=== PATIENT | male | born 1990 | race Caucasian/White ===

== ENCOUNTER 2020-02-01 15:00 | Emergency (ER) | payer BC, SELFPAY ==
[2020-02-01 16:00] LABS: Absolute Lymphocytes (CBC) 1.3 K/uL (0.7-4.9); Basophils % 0.6 % (0-1.3); Hematocrit 46.2 % (39.6-49.0); Lymphocytes % 25.2 % (15.3-44.8); MPV 9.1 fL (7.6-11.3); RBC Red Blood Cell Count 4.86 M/uL (4.33-5.43)
[2020-02-01] MEDS ORDERED: LIDOCAINE VISCOUS 2% SOLN 15 ML UDC ONE (16:02)
[2020-02-01] MEDS ORDERED: MAGNE/ALUM HYDROXD 30 ML UCUP ONE (16:02)
[2020-02-01] MEDS ORDERED: FAMOTIDINE 20 MG/2 ML VIAL IV ONE (16:03)
[2020-02-01 16:21] LABS: Albumin 3.9 g/dL (3.4-5.0); Bilirubin Direct 0.2 mg/dL (0-0.2); Bilirubin Total 0.5 mg/dL (0.2-1.0); Potassium 3.9 mmol/L (3.5-5.1); Protein, Total 7.6 g/dL (6.4-8.2)
--- NOTE | 2020-02-01 16:34 | EDPHYS ---
Physician Documentation [facility] Name: Ramiro Urban Age: 29 yrs Sex: Male : 1990 Arrival Date: 02/01/2020 Time: 15:04 Bed 19 Private MD: ED Physician Carlos Manuel Eid HPI: 01/31 16:30 This 29 yrs old Male presents to ER via Ambulatory with complaints of Upper rn Abd Pain. 16:30 The patient presents with abdominal pain in the epigastric area. Onset: The rn symptoms/episode began/occurred 2 day(s) ago. The symptoms do not radiate. Associated signs and symptoms: Pertinent positives: nausea, Pertinent negatives: blood in stools, fever, vomiting, vomiting blood. Modifying factors: The symptoms are alleviated by nothing, the symptoms are aggravated by food, touching the area. Severity of pain: At its worst the pain was mild in the emergency department the pain is unchanged. The patient has not experienced similar symptoms in the past. Reports upper abd pain, began 2 days ago, worse with food, + hx of acid reflux, today feels different, no bloody or dark stool. Improved with bread. . Historical: - Allergies: 15:24 No Known Allergies; ca1 - Home Meds: 15:24 None [Active]; ca1 - PMHx: 15:24 None; ca1 - PSHx: 15:24 None; ca1 - Immunization history:: Adult Immunizations up to date. - Social history:: Smoking status: Patient reports the use of cigarette tobacco products, denies chronic smoking, but will smoke occasionally, Patient uses alcohol, on a daily basis. admits to "couple of beers" a day. - Family history:: not pertinent. - Hospitalizations: : No recent hospitalization is reported. ROS: 16:30 Constitutional: Negative for fever, chills, and weight loss, Eyes: Negative for injury, rn pain, redness, and discharge, Neck: Negative for injury, pain, and swelling, Cardiovascular: Negative for chest pain, palpitations, and edema, Respiratory: Negative for shortness of breath, cough, wheezing, and pleuritic chest pain, Abdomen/GI: + abd pain/nausea MS/Extremity: Negative for injury and deformity, Skin: Negative for injury, rash, and discoloration, Neuro: Negative for headache, weakness, numbness, tingling, and seizure. Exam: 16:30 Constitutional: This is a well developed, well nourished patient who is awake, alert, rn and in no acute distress. Head/Face: Normocephalic, atraumatic. Cardiovascular: Regular rate and rhythm. No pulse deficits. Respiratory: No increased work of breathing, no retractions or nasal flaring. Abdomen/GI: soft, + epigastric tenderness, no masses, neg zhou Skin: Warm, dry with normal turgor. Normal color with no rashes, no lesions, and no evidence of cellulitis. MS/ Extremity: Pulses equal, no cyanosis. Neurovascular intact. Full, normal range of motion. Equal circumference. Neuro: Awake and alert, GCS 15 Vital Signs: 15:07 BP 136 / 101; Pulse 93; Resp 17 S; Temp 98.5(O); Pulse Ox 98% on R/A; Weight 72.57 kg ca1 (R); Height 5 ft. 7 in. (170.18 cm) (R); Pain 5/10; 15:58 BP 153 / 102; Pulse 79; Resp 15 S; Pulse Ox 98% on R/A; ca1 16:40 BP 160 / 100; Pulse 81; Resp 16 S; Pulse Ox 99% on R/A; ca1 15:07 Body Mass Index 25.06 (72.57 kg, 170.18 cm) ca1 MDM: 15:13 Patient medically screened. rn 16:32 Differential diagnosis: cholecystitis, Cholelithiasis, gastritis, gastroesophageal rn reflux disease. Differential diagnosis: pancreatitis. Data reviewed: vital signs, nurses notes, lab test result(s), radiologic studies, ultrasound, and as a result, I will discharge patient. Counseling: I had a detailed discussion with the patient and/or guardian regarding: the historical points, exam findings, and any diagnostic results supporting the discharge/admit diagnosis, lab results, radiology results, the need for outpatient follow up, to return to the emergency department if symptoms worsen or persist or if there are any questions or concerns that arise at home. Response to treatment: the patient's symptoms have mildly improved after treatment, and as a result, I will discharge patient. Special discussion: Based on the patient's Hx, exam, and Dx evaluation, there is no indication for emergent surgery or inpatient Tx. It is understood by the patient/guardian that if the Sx's persist or worsen they need to return immediately for re-evaluation. I discussed with the patient/guardian in detail that at this point there is no indication for admission to the hospital. It is understood, however, that if the symptoms persist or worsen the patient needs to return immediately for re-evaluation. 01/31 15:29 Order name: Basic Metabolic Panel; Complete Time: 16:29 rn 01/31 15:29 Order name: CBC with Diff; Complete Time: 16:29 rn 01/31 15:29 Order name: Hepatic Function; Complete Time: 16:29 rn 01/31 15:29 Order name: Lipase; Complete Time: 16:29 rn 01/31 15:29 Order name: US Abdomen Limited rn 01/31 15:29 Order name: IV Saline Lock; Complete Time: 15:57 rn 01/31 15:29 Order name: Labs collected and sent; Complete Time: 15:57 rn Administered Medications: 15:56 Drug: Pepcid 20 mg Route: IVP; Site: right antecubital; ca1 16:58 Follow up: Response: No adverse reaction; Pain is decreased ca1 15:57 Drug: GI Cocktail without - (Maalox Suspension 30 ml, Lidocaine Liquid 2 % 15 ca1 ml) Route: PO; 16:58 Follow up: Response: No adverse reaction; Pain is decreased ca1 16:38 CANCELLED (pain resolved): Demerol 25 mg IVP once; RASS on ADMIN: Combtv4, Very Agttd3, rn Agttd2, Rstlss1, AlertClm0, Drwsy-1, Lt Sdtn-2, Mod Sdtn-3, Dp Sdtn-4, UnArsble-5 Disposition: 02/01/20 16:33 Discharged to Home. Impression: Gastritis, unspecified, without bleeding. - Condition is Stable. - Discharge Instructions: Gastritis, Adult. - Prescriptions for Protonix 40 mg Oral Tablet - take 1 tablet by ORAL route once daily; 30 tablet. - Medication Reconciliation Form, Thank You Letter, Antibiotic Education, Prescription Opioid Use, Work release form form. - Follow up: Darwin Hernandez MD; When: As needed; Reason: Recheck today's complaints, Re-evaluation by your physician. - Problem is new. - Symptoms have improved. Signatures: Dispatcher [employer] EDMS Carlos Manuel Eid MD MD rn Acob, LAURA Oneill RN ca1 Corrections: (The following items were deleted from the chart) 16:38 16:32 Demerol 25 mg IVP once; RASS on ADMIN: Combtv4, Very Agttd3, Agttd2, Rstlss1, rn AlertClm0, Drwsy-1, Lt Sdtn-2, Mod Sdtn-3, Dp Sdtn-4, UnArsble-5 ordered. rn 17:05 16:33 02/01/2020 16:33 Discharged to Home. Impression: Gastritis, unspecified, without ca1 bleeding. Condition is Stable. Forms are Medication Reconciliation Form, Thank You Letter, Antibiotic Education, Prescription Opioid Use. Follow up: Darwin Hernandez; When: As needed; Reason: Recheck today's complaints, Re-evaluation by your physician. Problem is new. Symptoms have improved. rn
--- NOTE | 2020-02-01 16:34 | ER ---
Nurse's Notes [facility] Name: Ramiro Urban Age: 29 yrs Sex: Male : 1990 Arrival Date: 02/01/2020 Time: 15:04 Bed 19 Private MD: Diagnosis: Gastritis, unspecified, without bleeding Presentation: 01/31 15:07 Chief complaint: Patient states: Epigastric pain since yesterday, sharp, intermittent, ca1 worse with drinking and eating. Denies N/V/D. Coronavirus screen: Client denies travel out of the [place] in the last 14 days. At this time, the client does not indicate any symptoms associated with coronavirus-19. Ebola Screen: Patient negative for fever greater than or equal to 101.5 degrees Fahrenheit, and additional compatible Ebola Virus Disease symptoms Patient denies exposure to infectious person. Patient denies travel to an Ebola-affected area in the 21 days before illness onset. No symptoms or risks identified at this time. Initial Sepsis Screen: Does the patient meet any 2 criteria? No. Patient's initial sepsis screen is negative. Does the patient have a suspected source of infection? No. Patient's initial sepsis screen is negative. Risk Assessment: Do you want to hurt yourself or someone else? Patient reports no desire to harm self or others. Onset of symptoms. 15:07 Method Of Arrival: Ambulatory ca1 15:07 Acuity: LUTHER 3 ca1 Triage Assessment: 15:24 General: Appears in no apparent distress. comfortable, Behavior is calm, cooperative, ca1 appropriate for age. Pain: Complains of pain in epigastric area Pain does not radiate. Pain currently is 5 out of 10 on a pain scale. Quality of pain is described as sharp, Pain began 1 day ago. Is intermittent, Aggravated by eating, drinking. EENT: No deficits noted. No signs and/or symptoms were reported regarding the EENT system. Neuro: Level of Consciousness is awake, alert, obeys commands, Oriented to person, place, time, situation, Appropriate for age. Cardiovascular: Heart tones S1 S2 present Capillary refill < 3 seconds Patient's skin is warm and dry. Respiratory: Airway is patent Respiratory effort is even, unlabored, Respiratory pattern is regular, symmetrical, Breath sounds are clear bilaterally. GI: Abdomen is flat, non-distended, Bowel sounds present X 4 quads. Abd is soft and non tender X 4 quads. : No deficits noted. No signs and/or symptoms were reported regarding the genitourinary system. Derm: Skin is intact, is healthy with good turgor, Skin is pink, warm \\T\\ dry. Musculoskeletal: Circulation, motion, and sensation intact. Capillary refill < 3 seconds. Historical: - Allergies: 15:24 No Known Allergies; ca1 - Home Meds: 15:24 None [Active]; ca1 - PMHx: 15:24 None; ca1 - PSHx: 15:24 None; ca1 - Immunization history:: Adult Immunizations up to date. - Social history:: Smoking status: Patient reports the use of cigarette tobacco products, denies chronic smoking, but will smoke occasionally, Patient uses alcohol, on a daily basis. admits to "couple of beers" a day. - Family history:: not pertinent. - Hospitalizations: : No recent hospitalization is reported. Screenin:26 Abuse screen: Denies threats or abuse. Denies injuries from another. Nutritional ca1 screening: No deficits noted. Tuberculosis screening: No symptoms or risk factors identified. Fall Risk IV access (20 points). Assessment: 15:26 Reassessment: see triage notes. ca1 15:57 Reassessment: US at bedside. ca1 16:40 Reassessment: Patient appears in no apparent distress at this time. Patient and/or ca1 family updated on plan of care and expected duration. Pain level reassessed. Patient is alert, oriented x 3, equal unlabored respirations, skin warm/dry/pink. Patient states feeling better. 16:57 Reassessment: Advised to seeing a doctor for elevated BP. Pt states,"I've always have ca1 high BP and working on getting a doctor". Vital Signs: 15:07 BP 136 / 101; Pulse 93; Resp 17 S; Temp 98.5(O); Pulse Ox 98% on R/A; Weight 72.57 kg ca1 (R); Height 5 ft. 7 in. (170.18 cm) (R); Pain 5/10; 15:58 BP 153 / 102; Pulse 79; Resp 15 S; Pulse Ox 98% on R/A; ca1 16:40 BP 160 / 100; Pulse 81; Resp 16 S; Pulse Ox 99% on R/A; ca1 15:07 Body Mass Index 25.06 (72.57 kg, 170.18 cm) ca1 ED Course: 15:04 Patient arrived in ED. ds1 15:13 Carlos Manuel Eid MD is Attending Physician. rn 15:22 Mai Tobias RN is Primary Nurse. ca1 15:24 Triage completed. ca1 15:24 Arm band placed on right wrist. ca1 15:26 Patient has correct armband on for positive identification. Bed in low position. Call ca1 light in reach. Side rails up X 1. Placed in gown. Pulse ox on. NIBP on. Warm blanket given. 15:50 No provider procedures requiring assistance completed. Initial lab(s) drawn, by mi, ca1 sent to lab. Inserted saline lock: 20 gauge in right antecubital area, using aseptic technique. Blood collected. 16:13 US Abdomen Limited In Process Unspecified. EDMS 16:33 Darwin Hernandez MD is Referral Physician. rn 16:58 IV discontinued, intact, bleeding controlled, No redness/swelling at site. Pressure ca1 dressing applied. Administered Medications: 15:56 Drug: Pepcid 20 mg Route: IVP; Site: right antecubital; ca1 16:58 Follow up: Response: No adverse reaction; Pain is decreased ca1 15:57 Drug: GI Cocktail without - (Maalox Suspension 30 ml, Lidocaine Liquid 2 % 15 ca1 ml) Route: PO; 16:58 Follow up: Response: No adverse reaction; Pain is decreased ca1 16:38 CANCELLED (pain resolved): Demerol 25 mg IVP once; RASS on ADMIN: Combtv4, Very Agttd3, rn Agttd2, Rstlss1, AlertClm0, Drwsy-1, Lt Sdtn-2, Mod Sdtn-3, Dp Sdtn-4, UnArsble-5 Outcome: 16:33 Discharge ordered by . rn 17:05 Discharged to home ambulatory. ca1 17:05 Condition: stable 17:05 Discharge instructions given to patient, Instructed on discharge instructions, follow up and referral plans. medication usage, Demonstrated understanding of instructions, follow-up care, medications, Prescriptions given X 1. 17:05 Patient left the ED. ca1 Signatures: Dispatcher [employer] EDMS GoetzClaudine warner ds1 Eid, Carlos Manuel, MD MD rn Acob, Mai, RN RN ca1
--- NOTE | 2020-02-01 17:01 | RAD REPORT ---
EXAM DESCRIPTION: US - Abdomen Exam Limited - 02/01/2020 4:13 pm CLINICAL HISTORY: rule out cholecystitis Right upper quadrant abdominal pain COMPARISON: No comparisons FINDINGS: The gallbladder demonstrates no gallstones. No pericholecystic fluid or gallbladder wall t hickening. The common bile duct is normal measuring 2 mm. The liver demonstrates no findings of intrahepatic biliary dilatation. IMPRESSION: Unremarkable examination.
== END 2020-02-01 17:05 | disposition home or self-care (01) ==
LOC: ER 15:00
DX: K29.70 Gastritis, unspecified, without bleeding (principal); F17.210 Nicotine dependence, cigarettes, uncomplicated
CPT/HCPCS: 36415; 76705; 80048; 80076; 83690; 85025; 96374; 99284